=== PATIENT | female | born 1955 | race Two or more races ===

== ENCOUNTER 2025-02-04 13:40 | Day surgery (SDC) | payer OTHER, SELFPAY ==
[2025-02-03 15:03] VITALS: BMI 31.3
[2025-02-04] VITALS (8 sets, daily range): BP systolic 102–148; BP diastolic 69–87; PULSE 66–77; RESP 12–24; TEMP 36.1–36.3; O2SAT 93–100; BMI 32.1
[2025-02-04] MEDS: SODIUM CHLORIDE 0.9% 500 ML 500 ML 20 ML IV (13:14)
[2025-02-04] MEDS: BENZOCAINE 20% (Hurricaine) SPRAY 1 DOSE TOP (15:13)
[2025-02-04] MEDS: DiphenhydrAMINE INJ 50 MG/ML VIAL 25 MG IVP (15:14)
[2025-02-04] MEDS: fentaNYL CIT INJ 50 mCg/ML AMP 2ML (ASD USE ONLY) IVP (15:16)
[2025-02-04] MEDS: MIDAZOLAM INJ 1 MG/ML VIAL 2 ML (ASD USE ONLY) 2 MG IVP (15:24)
--- NOTE | 2025-02-04 16:38 | SUR.PHASEII ---
1625 Pt assessment unchanged, except more awake and alert. No complaints. DC instructions given-pt meets dc criteria-to home.
== END 2025-02-04 16:25 | disposition home or self-care (01) ==
PROVIDERS: PCP Internal Medicine; Referring Provider Specialist; Visit Provider Specialist
PROC: (CPT 43239; principal; 2025-02-04 13:45)
DX: K20.90 Esophagitis, unspecified without bleeding (principal); K29.70 Gastritis, unspecified, without bleeding; K29.50 Unspecified chronic gastritis without bleeding; K31.89 Other diseases of stomach and duodenum
CPT/HCPCS: 43239; J1200; J2250; J3010; J7999; A9270